=== PATIENT | female | born 1980 | race Caucasian/White ===

== ENCOUNTER 2018-05-03 02:05 | Emergency (ER) | payer OTHER ==
[~2018-05-03] VITALS: Ht 165.1 cm; Wt 59.0 kg
--- NOTE | 2018-05-03 02:26 | NUR ---
PT A/OX4, RESPONSIVE TO VERBAL AND TACTILE STIMULI. PT C/O R BUTTOCK ABSCESS. UPON ASSESSMENT, R BUTTOCK ABSCESS IS OPEN AND DRAINING. GAUZE IS SOAKED W/ DRAINAGE. R BUTTOCK IS EDEMATOUS AND WARM TO TOUCH. SECONDARY COMPLAINT: L THUMB WOUND. PT STATES A DOG BIT HER AND PEELED BACK THE SKIN THAT WAS ALREADY OPEN FROM AN ABSCESS. PT DENIES C/P, SOB, N/V/D, DIZZINESS, HEADACHE.
[2018-05-03] MEDS ORDERED: SULFAMETH/TRIMETH 800/160 MG TABLET PO ONE (02:30)
[2018-05-03] MEDS ORDERED: SULFAMETH/TRIMETH 800/160 MG TABLET ONE ×2 (02:32→02:33)
[2018-05-03 02:53] VITALS: BP 111/56
--- NOTE | 2018-05-03 02:53 | NUR ---
DPatient discharged to home in stable conditon. Written and verbal after care instructions given. Patient verbalizes understanding of instructions. D/C W/ PRESCRIPTION. ALL BELONGINGS W/ PT. PT SELF-AMBULATED WITHOUT DIFFICULTY.
== END 2018-05-03 02:54 | disposition home or self-care (01) ==
LOC: ER 02:11
DX: S62.522D Displaced fracture of distal phalanx of left thumb, subsequent encounter for fracture with routine healing (principal); L02.31 Cutaneous abscess of buttock; L08.9 Local infection of the skin and subcutaneous tissue, unspecified; J45.909 Unspecified asthma, uncomplicated; F11.10 Opioid abuse, uncomplicated; Z88.0 Allergy status to penicillin; W54.0XXD Bitten by dog, subsequent encounter
CPT/HCPCS: 99283; A4663

== ENCOUNTER 2019-08-23 09:17 | Inpatient (IN) | payer MEDICAID, OTHER ==
[~2019-08-23] VITALS: Ht 165.1 cm; Wt 56.7 kg
--- NOTE | 2019-08-23 09:34 | NUR ---
PT IS A/OX4, PRESENTS TO THE ER W/ NEPHEW, ON WHEELCHAIR C/O GENERALIZED WEAKNESS. 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 PT IS ABLE TO FOLLOW COMMANDS, ABLE TO MOVE ALL EXTREMITIES, NO EXTREMITY DRIFT, NO FACIAL DROOP. PT STATES SHE IS HOMELESS. OFFERED FOOD AND WATER, BUT DENIES AT THIS TIME. ER MD AT BEDSIDE FOR MSE.
[2019-08-23 10:02] LABS: BASOPHILS % (AUTO) 0.9 % (0.0-2.0); EOSINOPHILS # (AUTO) 0.1 K/uL (0.0-0.7); HEMATOCRIT 42.1 % (31.2-41.9); HEMOGLOBIN 14.3 g/dL (10.9-14.3); LYMPHOCYTES # (AUTO) 1.4 K/uL (20.0-40.0); LYMPHOCYTES % (AUTO) 26.3 % (20.5-51.5); MEAN CORPUSCULAR HEMOGLOBIN 27.1 uug (24.7-32.8); MEAN CORPUSCULAR HGB CONC 34 g/dL (32.3-35.6); MEAN CORPUSCULAR VOLUME 79.7 fL (75.5-95.3); MONOCYTES # (AUTO) 0.4 K/uL (2.0-10.0); MONOCYTES % (AUTO) 7.5 % (0.0-11.0); NEUTROPHILS # (AUTO) 3.3 K/uL (1.8-8.9); NEUTROPHILS % (AUTO) 63.3 % (38.5-71.5); PLATELET COUNT (AUTO) 297 K/uL (179-408); RED BLOOD CELL COUNT(AUTO) 5.29 MIL/uL (3.63-4.92); WHITE BLOOD COUNT (AUTO) 5.2 K/uL (3.8-11.8)
[2019-08-23 10:21] LABS: CREATININE 0.7 mg/dL (0.6-1.3)
--- NOTE | 2019-08-23 10:25 | NUR ---
PT STATES SHE DOES NOT NORMALLY USE A WHEELCHAIR, BUT STARTED USING IT TODAY DUE TO THE GENERALIZED WEAKNESS. ALL EXTREMITIES FALL BEFORE 10 SECONDS DURING NIHSS ASSESSMENT. PT STATES LAST WELL KNOWN DATE WAS 3 DAYS AGO.
--- NOTE | 2019-08-23 10:40 | NUR ---
PAGED EPIC FOR PANEL CALL - AWAITING CALLBACK. ATTEMPT 1.
[2019-08-23] MEDS ORDERED: ASPIRIN 325 MG TABLET ONE (10:57)
[2019-08-23] MEDS ORDERED: ASPIRIN 325 MG TABLET PO ONE (11:00)
--- NOTE | 2019-08-23 11:30 | NUR ---
SUNDAY ADAMS NP, AT BEDSIDE FOR PT ASSESSMENT FOR ADMISSION.
--- NOTE | 2019-08-23 11:31 | NUR ---
Pt. admitted to TELE 316, under care of SUNDAY ADAMS, HEALTH ASSOCIATE. Belongs List completed
--- NOTE | 2019-08-23 11:38 | NUR ---
ADMITTING REPORT GIVEN TO JACQUELINE ALY.
--- NOTE | 2019-08-23 12:40 | NUR ---
Received patient from er via wheelchair with diagnosis of generalized weakness. pt alert and oriented x4. pt lethargic and weak. no acute distress or sob noted. pt on telemetry monitoring with sinus tach rhythm. pt is pleasant and cooperative. bed locked and in low position with side rails up x2. belongings list completed. will continue to monitor patient for safety and comfort.
[2019-08-23 12:50] VITALS: BP 107/79
[2019-08-23] MEDS ORDERED: HYDROCODONE/APAP 5-325MG TABLET PO PRN (13:45)
[2019-08-23] MEDS ORDERED: ONDANSETRON 4 MG/2 ML VIAL IV PRN (13:45)
[2019-08-23] MEDS ORDERED: MAGNESIUM HYDROXIDE 30 ML LIQUID UDC PO PRN (13:45)
[2019-08-23] MEDS ORDERED: ZOLPIDEM 5 MG TABLET PO PRN (13:45)
[2019-08-23] MEDS ORDERED: ACETAMINOPHEN 325 MG TABLET PO PRN (13:45)
[2019-08-23] MEDS ORDERED: Z GUARD REMEDY PASTE 57 GM TUBE TOP PRN (13:45)
[2019-08-23] MEDS: IV NS 1000 ML 1,000 ML IV PRN (14:21)
[2019-08-23 15:51] VITALS: BP 118/69
[2019-08-23 17:31] LABS: BILIRUBIN,DIRECT 0.1 mg/dL (0.0-0.2); BILIRUBIN,TOTAL 0.4 mg/dL (0.2-1.0); TOTAL PROTEIN, SERUM 9.7 g/dL (6.4-8.2)
[2019-08-23 17:33] LABS: THYROID STIMULATING HORMONE 3.463 mIU/mL (0.358-3.740)
[2019-08-23] MEDS ORDERED: BLOOD SUGAR DIAGNOSTIC 1 EACH STRIP VI SCH (18:00)
--- NOTE | 2019-08-23 18:00 | NUR ---
NIHSS 0, NURSING SWALLOW EVAL PASSED DR ADAMS INFORMED. NO ACUTE DISTRESS NOTED, NO SOB NOTED, PT SEEMS MORE AWAKE. A+O X3. PT PLEASANT AND COOPERATIVE. PT EAT DINNER WITHOUT SIGNS OF SWALLOWING ISSUES. BED LOCKED AND IN LOW POSITION. CALL LIGHT WITHIN REACH. PT ASSISTED TO THE RESTROOM TO VOID. PICTURES TAKEN AND IN THE CHART. PT ON TELE MONITORING WITH SINUS TACH RHYTHM. WILL GIVE SHIFT CHANGE REPORT ACCORDINGLY.
[2019-08-23 18:12] LABS: *BILIRUBIN,URIN 1+ (NEGATIVE); *BLOOD, URINE NEGATIVE (NEGATIVE); *KETONES,URINE NEGATIVE (NEGATIVE); *UROBILINOGEN,URINE 0.2 E.U./dl (NORMAL); LEUKOCYTE ESTERASE ,URINE NEGATIVE (NEGATIVE); NITRITE, URINE NEGATIVE (NEGATIVE); PH,URINE 5.5 (5.0-8.0); UGLUCOSE NEGATIVE (NEGATIVE)
[2019-08-23 18:26] LABS: *CLARITY,URINE SLIGHTLY HAZY (CLEAR); *COLOR,URINE DARK YELLOW (YELLOW)
[2019-08-23 18:27] LABS: BACTERIA,URINE FEW /HPF (NONE SEEN); SQUAMOUS EPITHELIAL CELL,UR FEW /HPF (NONE SEEN); WBC,URINE 0-3 /HPF (0-3)
[2019-08-23 18:28] LABS: *AMPHETAMINE, URINE POSITIVE (NEGATIVE); *BARBITURATE, URINE NEGATIVE (NEGATIVE); *CANNABINOID, URINE NEGATIVE (NEGATIVE); *COCCAINE, URINE NEGATIVE (NEGATIVE); *OPIATE, URINE POSITIVE (NEGATIVE); *PHENCYCLIDINE SCREEN,URINE NEGATIVE (NEGATIVE); CALCIUM OXALATE CRYSTALS,UR MODERATE /HPF (NONE SEEN); MUCUS,URINE MANY /LPF (0-FEW)
--- NOTE | 2019-08-23 19:20 | NUR ---
Received patient lying in bed. AAOX4. In no acute distress. Still appears weak. Able to make needs known. Denies any pain or SOB. Sinus tachy on tele 109/min. Right upper arm IV site intact and patent. IVF infusing. Safety measure initiated and call coates within reached.
[2019-08-23 20:15] VITALS: BP 97/65
[2019-08-23] MEDS: BLOOD SUGAR DIAGNOSTIC 1 EACH STRIP VI SCH (20:31)
[2019-08-24] VITALS: BP 120/69
[2019-08-24] MEDS: IV NS 1000 ML 1,000 ML IV PRN ×3 (01:55→22:49)
[2019-08-24 04:45] VITALS: BP 115/79
--- NOTE | 2019-08-24 05:25 | NUR ---
Patient slept well last night. Remains AOX4. In no acute distress. Denies any pain or SOB. NSR on tele 90/min. Right upper arm IV site remains intact and patent. IVF continue to infuse. Needs attended to and met. Safety measure maintained and call coates within reached.
[2019-08-24 06:28] LABS: BASOPHILS % (AUTO) 0.9 % (0.0-2.0); EOSINOPHILS # (AUTO) 0.1 K/uL (0.0-0.7); EOSINOPHILS % (AUTO) 2.6 % (0.0-7.0); HEMATOCRIT 36.1 % (31.2-41.9); HEMOGLOBIN 12.2 g/dL (10.9-14.3); LYMPHOCYTES # (AUTO) 1.3 K/uL (20.0-40.0); LYMPHOCYTES % (AUTO) 32.2 % (20.5-51.5); MEAN CORPUSCULAR HEMOGLOBIN 26.9 uug (24.7-32.8); MEAN CORPUSCULAR HGB CONC 34 g/dL (32.3-35.6); MEAN CORPUSCULAR VOLUME 79.4 fL (75.5-95.3); MONOCYTES # (AUTO) 0.3 K/uL (2.0-10.0); MONOCYTES % (AUTO) 8.4 % (0.0-11.0); NEUTROPHILS # (AUTO) 2.3 K/uL (1.8-8.9); NEUTROPHILS % (AUTO) 55.9 % (38.5-71.5); PLATELET COUNT (AUTO) 253 K/uL (179-408); RED BLOOD CELL COUNT(AUTO) 4.55 MIL/uL (3.63-4.92); WHITE BLOOD COUNT (AUTO) 4.1 K/uL (3.8-11.8)
[2019-08-24 06:36] LABS: CREATININE 0.7 mg/dL (0.6-1.3); MAGNESIUM 1.6 mg/dL (1.8-2.4); PHOSPHOROUS 3.4 mg/dL (2.5-4.9); POTASSIUM 3.7 mmol/L (3.5-5.1)
[2019-08-24] MEDS: BLOOD SUGAR DIAGNOSTIC 1 EACH STRIP VI SCH ×4 (06:36→21:18)
--- NOTE | 2019-08-24 08:00 | NUR ---
Received patient lying in bed. AAOX4. In no acute distress or sob noted. Able to make needs known. Denies any pain or SOB. Sinus tachy on tele . Right upper arm IV site intact and patent. IVF infusing. Safety measure initiated and call light within reached. will continue to monitor for safety and comfort.
[2019-08-24 11:30] VITALS: BP 120/85
[2019-08-24] MEDS ORDERED: MAGNESIUM OXIDE 400 MG TABLET PO ONE (12:00)
--- NOTE | 2019-08-24 12:00 | NUR ---
MID LINE INSERTED IN BRAXTON. NO ACUTE DISTRESS OR SOB NOTED. CALL LIGHT WITHIN REACH. BED LOCKED AND IN LOW POSITION. BED ALARM ON. WILL CONTINUE TO MONITOR FOR SAFETY AND COMFORT.
[2019-08-24 15:55] VITALS: BP 123/87
--- NOTE | 2019-08-24 16:59 | NUR ---
Heavy Equipment Sales Manager Consultation 2:10pm: SW met with this patient today. Patient was in bed, in her assigned room. Patient was awake, receptive to meeting with this SW. Patient is a 38 year old female, who presented to the ED on 08/23 due to weakness. Patient states she has been homeless for the past 10 years, however was independent in function. Patient stated that she began feeling weak about 1 week ago, and needed to use a wheelchair for mobility. Patient stated she is a daily heroin user, and has been using for the past 15 years. Patient states she uses heroin 3 x day. Patient reports having been in a drug treatment program about 1 year ago, however stated that it was not helpful. Patient has a daughter, Fern, who is 18 years old and lives in [place] with her paternal grandmother. Patient has a friend named Ms. Bianchi, who she states lives with her on the streets, and is her "street mother". Patient states her parents are both . Patient reports no past or current SI. PHQ-9 administered, and patient scored a 1, stating that sometimes she feels hopeless, however her friend Ms. Bianchi is very supportive and helpful. Discharge plans discussed with the patient, and patient would like to return to her previous living arrangement, if possible. Community resources for homeless individuals was discussed, and patient declined shelters, however expressed being receptive to other community resources such as places for meals, food pantries, places to go for showers. Resources packet to be provided at discharge, which patient was receptive to. Case management to assist patient with discharge plans. No further SS interventions needed at this time, however SW will be available to the patient, if needed.
--- NOTE | 2019-08-24 18:01 | NUR ---
PT RESTING COMFORTABLY. NO ACUTE DISTRESS NOTED, NO SOB NOTED, PT SEEMS MORE AWAKE. A+O X3. PT PLEASANT AND COOPERATIVE. BED LOCKED AND IN LOW POSITION. CALL LIGHT WITHIN REACH. PT ASSISTED TO THE RESTROOM TO VOID. PT ON TELE MONITORING WITH SINUS TACH RHYTHM. WILL GIVE SHIFT CHANGE REPORT ACCORDINGLY.
[2019-08-24 20:00] VITALS: BP 126/89
[2019-08-25] VITALS: BP 127/84
[2019-08-25 04:00] VITALS: BP 127/91
--- NOTE | 2019-08-25 06:35 | NUR ---
Patient slept well through out the night. No complaints of pain. No SOB noted. BRAXTON midline intact and patent w/ IVF infusing. All needs attended. Will endorse accordingly
[2019-08-25] MEDS: BLOOD SUGAR DIAGNOSTIC 1 EACH STRIP VI SCH ×4 (06:45→20:20)
[2019-08-25 07:18] LABS: BASOPHILS % (AUTO) 0.6 % (0.0-2.0); EOSINOPHILS % (AUTO) 0.6 % (0.0-7.0); HEMATOCRIT 36.1 % (31.2-41.9); HEMOGLOBIN 12.2 g/dL (10.9-14.3); LYMPHOCYTES % (AUTO) 18.5 % (20.5-51.5); MEAN CORPUSCULAR HEMOGLOBIN 26.8 uug (24.7-32.8); MEAN CORPUSCULAR HGB CONC 34 g/dL (32.3-35.6); MEAN CORPUSCULAR VOLUME 78.9 fL (75.5-95.3); MONOCYTES # (AUTO) 0.3 K/uL (2.0-10.0); MONOCYTES % (AUTO) 6.2 % (0.0-11.0); NEUTROPHILS # (AUTO) 3.9 K/uL (1.8-8.9); NEUTROPHILS % (AUTO) 74.1 % (38.5-71.5); PLATELET COUNT (AUTO) 262 K/uL (179-408); RED BLOOD CELL COUNT(AUTO) 4.58 MIL/uL (3.63-4.92); WHITE BLOOD COUNT (AUTO) 5.3 K/uL (3.8-11.8)
--- NOTE | 2019-08-25 07:30 | NUR ---
Received patient in Bed, awake, and verbally responsive. No signs of distress noted. No complain of pain or discomfort. denies chest pain, recent BS is 106. IVF infusing well on BRAXTON midline. Kept comfortable. Will continue to monitor.
[2019-08-25 08:10] LABS: CREATININE 0.6 mg/dL (0.6-1.3); MAGNESIUM 1.7 mg/dL (1.8-2.4); PHOSPHOROUS 3.4 mg/dL (2.5-4.9); POTASSIUM 3.5 mmol/L (3.5-5.1)
[2019-08-25] MEDS: IV NS 1000 ML 1,000 ML IV PRN ×2 (08:53→20:11)
[2019-08-25] MEDS ORDERED: MAGNESIUM OXIDE 400 MG TABLET PO ONE (11:45)
[2019-08-25 11:56] VITALS: BP 122/81
[2019-08-25] MEDS ORDERED: METHADONE HCL 10 MG TABLET PO PRN (13:00)
[2019-08-25 15:37] VITALS: BP 115/70
--- NOTE | 2019-08-25 19:03 | NUR ---
Patient in Bed, awake and verbally responsive. No signs of distress noted. No SOB. No complain of pain or discomfort. Last BS is 68, No coverage. All needs attended and met. kept clean and comfortable. Will endorse to Oncoming Nurse.
[2019-08-25 20:17] VITALS: BP 128/87
[2019-08-26 04:59] VITALS: BP 116/71
[2019-08-26] MEDS: IV NS 1000 ML 1,000 ML IV PRN (05:19)
[2019-08-26] MEDS: BLOOD SUGAR DIAGNOSTIC 1 EACH STRIP VI SCH ×2 (06:55→11:38)
--- NOTE | 2019-08-26 07:25 | NUR ---
patient received lying in bed eating tuna sandwich. v/s stable and no signs of acute distress throughout shift. BS stable. safety and comfort measures provided. will continue plan of care and endorse to morning nurse.
--- NOTE | 2019-08-26 07:45 | NUR ---
Received patient in Bed, No signs of distress noted. No SOB. No complain of Pain or discomfort. latest BS is 133. No signs of Hyper/hypoglycemia. Kept comfortable. Will continue to monitor.
[2019-08-26 08:16] LABS: BASOPHILS # (AUTO) 0.1 K/uL (0.0-8.0); BASOPHILS % (AUTO) 1.4 % (0.0-2.0); EOSINOPHILS # (AUTO) 0.1 K/uL (0.0-0.7); EOSINOPHILS % (AUTO) 1.4 % (0.0-7.0); HEMATOCRIT 37.7 % (31.2-41.9); HEMOGLOBIN 12.7 g/dL (10.9-14.3); LYMPHOCYTES # (AUTO) 1.2 K/uL (20.0-40.0); LYMPHOCYTES % (AUTO) 26.9 % (20.5-51.5); MEAN CORPUSCULAR HEMOGLOBIN 26.4 uug (24.7-32.8); MEAN CORPUSCULAR HGB CONC 34 g/dL (32.3-35.6); MEAN CORPUSCULAR VOLUME 78.6 fL (75.5-95.3); MONOCYTES # (AUTO) 0.3 K/uL (2.0-10.0); MONOCYTES % (AUTO) 7.4 % (0.0-11.0); NEUTROPHILS # (AUTO) 2.8 K/uL (1.8-8.9); NEUTROPHILS % (AUTO) 62.9 % (38.5-71.5); PLATELET COUNT (AUTO) 258 K/uL (179-408); RED BLOOD CELL COUNT(AUTO) 4.79 MIL/uL (3.63-4.92); WHITE BLOOD COUNT (AUTO) 4.5 K/uL (3.8-11.8)
[2019-08-26 08:29] LABS: CARBON DIOXIDE 28 mmol/L (21-32); CHLORIDE 100 mmol/L (98-107); CREATININE 0.5 mg/dL (0.6-1.3); GLUCOSE 90 mg/dL (74-106); MAGNESIUM 1.8 mg/dL (1.8-2.4); PHOSPHOROUS 3.4 mg/dL (2.5-4.9); POTASSIUM 3.5 mmol/L (3.5-5.1); UREA NITROGEN, BLOOD 8 mg/dL (7-18)
[2019-08-26 11:34] VITALS: BP 125/85
--- NOTE | 2019-08-26 14:30 | NUR ---
Patient with Order to Discharge today. Patient is awake and verbally responsive. No signs of distress noted. No SOB. No complain of pain or discomfort. Homeless packet and Discharge Instruction was discussed to patient and verbalized Understanding. All belongings was signed and sent to patient. Removed PICC line and wrist band, Tap card was provided for transportation. patient left the building wheeling her Wheelchair in stable condition.
== END 2019-08-26 14:30 | disposition home or self-care (01) | DRG 422 ==
LOC: ER 09:17 → TELE3 11:58 → MEDSURG3 08-25 15:45
PROVIDERS: ADMIT Nurse Practitioner Acute Care; ATTEND Nurse Practitioner Acute Care
PROC: 05HB33Z Insertion of Infusion Device into Right Basilic Vein, Percutaneous Approach (ICD-10-PCS; principal; 2019-08-24)
DX: E86.0 Dehydration (principal); G93.41 Metabolic encephalopathy; F11.20 Opioid dependence, uncomplicated; R13.10 Dysphagia, unspecified; R53.1 Weakness; Z59.0 Homelessness; R47.81 Slurred speech; M54.9 Dorsalgia, unspecified; R79.89 Other specified abnormal findings of blood chemistry; B34.9 Viral infection, unspecified; R73.03 Prediabetes; F31.9 Bipolar disorder, unspecified; J45.909 Unspecified asthma, uncomplicated
CPT/HCPCS: 36415; 70030-TC; 70450; 71045; 80307; 83605; 83735; 84100; 84443; 85025; 85651; 85730; 87040; 87400; 93005; 93307; A4663; G0378; J7030

== ENCOUNTER 2020-04-20 01:08 | Emergency (ER) | payer MEDICAID | END 2020-04-20 01:15 | disposition left against medical advice (07) | LOC: ER 01:12 | DX: Z75.3 Unavailability and inaccessibility of health-care facilities (principal) ==